=== PATIENT | female | born 1935 | race Caucasian/White ===

== ENCOUNTER 2019-03-07 19:24 | Emergency (ER) | payer MEDICARE ==
[~2019-03-07] VITALS: Ht 149.9 cm; Wt 63.5 kg
[2019-03-07 19:25] VITALS: BP_SYST 195
[2019-03-07 20:51] LABS: BASOPHILS % (AUTO) 0.3 % (0.0-2.0); EOSINOPHILS # (AUTO) 0.1 K/uL (0.0-0.4); EOSINOPHILS % (AUTO) 0.8 % (0.0-4.0); HEMATOCRIT 44.5 % (36-48); HEMOGLOBIN 14.8 g/dL (12.0-16.0); LYMPHOCYTES % (AUTO) 20.5 % (20.5-51.5); MEAN CORPUSCULAR HEMOGLOBIN 31 pg (27-31); MEAN CORPUSCULAR HGB CONC 33 % (32-36); MEAN CORPUSCULAR VOLUME 93 fL (79.0-98.0); MONOCYTES # (AUTO) 0.8 K/uL (0.0-1.0); MONOCYTES % (AUTO) 8.3 % (1.7-9.3); NEUTROPHILS % (AUTO) 70.1 % (40.0-70.0); PLATELET COUNT (AUTO) 219 K/uL (130-430); RED BLOOD CELL COUNT(AUTO) 4.79 MIL/uL (4.2-6.2); RED CELL DISTRIBUTION WIDTH 14.6 % (9.0-15.0)
[2019-03-07 21:04] LABS: ANION GAP 6 (5-15); CHLORIDE 103 mmol/L (98-107); GLUCOSE 101 mg/dL (70-99); POTASSIUM 4.7 mmol/L (3.5-5.1); SODIUM SERUM 138 mmol/L (136-145); UREA NITROGEN, BLOOD 23 mg/dL (8-21)
[2019-03-07 21:06] LABS: PROTHROMBIN TIME 9.9 SECS (9.5-12.5)
[2019-03-07 21:10] LABS: ALANINE AMINOTRANSFERASE 35 U/L (12-78); ALBUMIN 3.4 g/dL (3.4-4.8); ASPARTATE AMINOTRANSFERASE 28 U/L (10-37); TOTAL BILIRUBIN 0.3 mg/dL (0.0-1.0)
[2019-03-07 21:15] LABS: CALCIUM 9.9 mg/dL (8.4-11.0)
[2019-03-07] MEDS ORDERED: KETOROLAC TROMETHAMINE 15 MG VIAL IM ONE (22:15)
[2019-03-07 22:18] VITALS: BP_SYST 145
== END 2019-03-07 22:18 | disposition home or self-care (01) ==
LOC: SED 19:24
DX: S22.41XA Multiple fractures of ribs, right side, initial encounter for closed fracture (principal); Z88.0 Allergy status to penicillin; Z88.5 Allergy status to narcotic agent; W01.0XXA Fall on same level from slipping, tripping and stumbling without subsequent striking against object, initial encounter; Y93.89 Activity, other specified; Y92.009 Unspecified place in unspecified non-institutional (private) residence as the place of occurrence of the external cause; Y99.8 Other external cause status
CPT/HCPCS: 36415; 71045; 72131; 72192; 80053; 85025; 85610; 96372; 99284; J1885